=== PATIENT | female | born 1940 | race Caucasian/White ===

== ENCOUNTER 2019-12-17 11:56 | Inpatient (IN) | payer MEDICARE, OTHER ==
[~2019-12-17] VITALS: Ht 165.1 cm; Wt 65.8 kg
[~2019-12-17 11:56] MED LIST: CRESTOR PO; OXYCONTIN PO
--- NOTE | 2019-12-17 12:03 | NUR ---
Patient assessed by . blood sugar of 158. md notified.
--- NOTE | 2019-12-17 12:05 | NUR ---
Patient taken down to CT.
[2019-12-17] MEDS ORDERED: IV NORMAL SALINE 250 ML IV ONE (12:21)
[2019-12-17] MEDS ORDERED: IOHEXOL 350 100 ML INFUS..BTL ONE (12:21)
[2019-12-17] MEDS ORDERED: SWABABLE VALVE TRANSFER SET EA MC ONE (12:21)
--- NOTE | 2019-12-17 12:25 | NUR ---
Iv line started in radiology by Landy Burnette.
--- NOTE | 2019-12-17 12:26 | NUR ---
Radiologist on the phone with Dr. Wilson
[2019-12-17 12:29] LABS: BASOPHILS % (AUTO) 0.3 % (0.0-2.0); EOSINOPHILS # (AUTO) 0.4 K/uL (0.0-0.7); EOSINOPHILS % (AUTO) 3.5 % (0.0-7.0); HEMATOCRIT 25.6 % (31.2-41.9); HEMOGLOBIN 8.7 g/dL (10.9-14.3); LYMPHOCYTES # (AUTO) 1.6 K/uL (20.0-40.0); MEAN CORPUSCULAR HEMOGLOBIN 28.9 uug (24.7-32.8); MEAN CORPUSCULAR HGB CONC 34 g/dL (32.3-35.6); MEAN CORPUSCULAR VOLUME 84.9 fL (75.5-95.3); MONOCYTES # (AUTO) 0.6 K/uL (2.0-10.0); MONOCYTES % (AUTO) 5.5 % (0.0-11.0); NEUTROPHILS # (AUTO) 8.5 K/uL (1.8-8.9); NEUTROPHILS % (AUTO) 76.7 % (38.5-71.5); PLATELET COUNT (AUTO) 259 K/uL (179-408); RED BLOOD CELL COUNT(AUTO) 3.01 MIL/uL (3.63-4.92); WHITE BLOOD COUNT (AUTO) 11.1 K/uL (3.8-11.8)
[2019-12-17] MEDS ORDERED: ASPI-1420 PO (12:36)
[2019-12-17] MEDS ORDERED: ROSU5TAB PO (12:36)
[2019-12-17] MEDS ORDERED: MAGN400C PO (12:36)
[2019-12-17] MEDS ORDERED: OXYC20TA58 PO (12:36)
[2019-12-17] MEDS ORDERED: MIRT15TA7 PO (12:36)
[2019-12-17] MEDS ORDERED: LEVE500T9 PO (12:36)
[2019-12-17] MEDS ORDERED: AMLO5TAB4 PO (12:36)
[2019-12-17] MEDS ORDERED: [UNRECOGNIZED DRUG - OTHER] PO (12:36)
[2019-12-17] MEDS ORDERED: DOCU100C36 PO (12:36)
[2019-12-17] MEDS ORDERED: VITAMIN D3 PO (12:36)
[2019-12-17 12:38] LABS: CARBON DIOXIDE 23 mmol/L (21-32); CHLORIDE 106 mmol/L (98-107); CREATININE 1.7 mg/dL (0.6-1.3); GLUCOSE 134 mg/dL (74-106); UREA NITROGEN, BLOOD 29 mg/dL (7-18)
[2019-12-17] MEDS ORDERED: ALBU0.63 NEB (12:38)
[2019-12-17] MEDS ORDERED: PANT20TA2 PO (12:38)
[2019-12-17] MEDS ORDERED: HYDR-894 PO (12:38)
[2019-12-17] MEDS ORDERED: ONDA4TAB5 PO (12:38)
[2019-12-17 12:44] LABS: ALANINE AMINOTRANSFERASE 17 U/L (14-59); ALKALINE PHOSPHATASE 114 U/L (50-136); ASPARTATE AMINOTRANSFERASE 24 U/L (15-37); BILIRUBIN,DIRECT 0.1 mg/dL (0.0-0.2); BILIRUBIN,TOTAL 0.3 mg/dL (0.2-1.0); CHOLESTEROL 129 mg/dL (<200); HDL CHOLESTEROL 66 mg/dL (40-60); TOTAL PROTEIN, SERUM 7.2 g/dL (6.4-8.2); TRIGLYCERIDES 91 MG/DL (30-150)
--- NOTE | 2019-12-17 12:44 | NUR ---
Patient back from radiology vitals as follow: hr of 76, 1005 on RA. sbp of 147/60 Addendum: 12/17/19 at 1406 by GMATEOS AAOX4. no c/of pain.
--- NOTE | 2019-12-17 12:59 | NUR ---
Telestroke assessment in progress
[2019-12-17 13:00] LABS: MAGNESIUM 3.9 mg/dL (1.8-2.4); PHOSPHOROUS 3.7 mg/dL (2.5-4.9)
--- NOTE | 2019-12-17 13:03 | NUR ---
NEUROLOGIST DR SQUIRES EVALUATED THE PT.
[2019-12-17 13:09] LABS: THYROID STIMULATING HORMONE 2.929 mIU/mL (0.358-3.740)
[2019-12-17] MEDS ORDERED: ASPIRIN 325 MG TABLET PO ONE (13:30)
--- NOTE | 2019-12-17 13:30 | NUR ---
Call for a bed 319 assigned no nurse available, as per legal secretary receptionist, Nursing sewing department supervisor called for receiving nurse.
[2019-12-17 13:39] LABS: *BILIRUBIN,URIN NEGATIVE (NEGATIVE); *BLOOD, URINE 2+ (NEGATIVE); *CLARITY,URINE CLEAR (CLEAR); *COLOR,URINE YELLOW (YELLOW); *KETONES,URINE NEGATIVE (NEGATIVE); *UROBILINOGEN,URINE 0.2 E.U./dl (NORMAL); LEUKOCYTE ESTERASE ,URINE NEGATIVE (NEGATIVE); NITRITE, URINE NEGATIVE (NEGATIVE); UGLUCOSE NEGATIVE (NEGATIVE)
--- NOTE | 2019-12-17 13:40 | NUR ---
Po aspirin not given pt. unable swallow at this time. Md notified.
[2019-12-17] MEDS ORDERED: ASPIRIN 300 MG RECTAL SUPP RC ONE ×2 (13:45→13:58)
[2019-12-17] MEDS ORDERED: ONDANSETRON 4 MG/2 ML VIAL IV PRN (13:45)
--- NOTE | 2019-12-17 13:45 | NUR ---
Epic N.P at bedside assessing patient.
--- NOTE | 2019-12-17 14:25 | NUR ---
Patient will remain in room 1A until rapid covid results released and as informed by med-surge staff if results negative pt. will be benjamin to room 311.
--- NOTE | 2019-12-17 15:45 | NUR ---
Telephone report given to Jim who will continue with care plan. vital of HR 79 sbp of 112/63. no c/of pain belonging taken with pt.
[2019-12-17] MEDS ORDERED: ONDANSETRON HCL 4 MG TABLET PO PRN (16:00)
[2019-12-17] MEDS ORDERED: hydrALAZINE HCL 25 MG TABLET PO PRN (16:00)
[2019-12-17 16:04] LABS: WBC,URINE 0-3 /HPF (0-3)
[2019-12-17 16:05] LABS: BACTERIA,URINE RARE /HPF (NONE SEEN); SQUAMOUS EPITHELIAL CELL,UR FEW /HPF (NONE SEEN)
[2019-12-17 16:13] VITALS: BP 141/41
--- NOTE | 2019-12-17 16:14 | NUR ---
patient taken up via gurney. care relinquish to Rani Carbajal after pt. situated in bed.
[2019-12-17] MEDS ORDERED: BLOOD SUGAR DIAGNOSTIC 1 EACH STRIP VI SCH (16:30)
--- NOTE | 2019-12-17 16:55 | NUR ---
79 year old female received from er via gurney to room 311.pt is axox4. call light with in reach made aware for the admission
[2019-12-17] MEDS: BLOOD SUGAR DIAGNOSTIC 1 EACH STRIP VI SCH (17:29)
--- NOTE | 2019-12-17 19:10 | NUR ---
Received pt in bed, awake. Denies any acute distress or pain at this time. V/S stable on room air. NSR on tele monitor. PIV on RFA 20 is intact. Safety measures in place. Call light within reach. Will continue with the plan of care.
[2019-12-17 20:30] VITALS: BP 120/71
[2019-12-17] MEDS ORDERED: SIMVASTATIN 40 MG TABLET PO SCH (21:00)
[2019-12-17] MEDS: ATORVASTATIN 20 MG TABLET PO SCH (21:01)
[2019-12-17] MEDS: levETIRAcetam 250 MG TABLET PO SCH (21:02)
[2019-12-17] MEDS: MIRTAZAPINE 15 MG TABLET PO SCH (21:02)
[2019-12-17] MEDS: AMLODIPINE 5 MG TABLET PO SCH (21:09)
[2019-12-17] MEDS: ACETAMINOPHEN 325 MG TABLET PO PRN (21:14)
[2019-12-18] MEDS: BLOOD SUGAR DIAGNOSTIC 1 EACH STRIP VI SCH ×5 (00:26→21:00)
[2019-12-18 00:28] VITALS: BP 148/59
[2019-12-18 04:00] VITALS: BP 144/55
[2019-12-18] MEDS: ACETAMINOPHEN 325 MG TABLET PO PRN (05:30)
--- NOTE | 2019-12-18 06:51 | NUR ---
Pt slept through the night. No s/s of acute distress or pain noted. Comfort care and needs attended. Blood sugar closely monitored. Fall, aspiration and seizure precaution maintained. Safety measures in place. Call light within reach. Will endorse to oncoming nurse accordingly.
--- NOTE | 2019-12-18 07:04 | NUR ---
TEXTED DR. VICENTE FOR MRI APPROVAL.
--- NOTE | 2019-12-18 07:06 | NUR ---
0700 Received pt from moisés, pt a/o/x3, forgetful, SB, breathing even/unlabored, room air, no distress at this time. WIll monitor pt clsoely. 12/19/19 0700 Pt was sleeping, SB, room air, breathing even/unlabored, no distress at this time. No acute event during nightshift. Will endorse to moisés.
[2019-12-18 08:00] VITALS: BP 148/54
[2019-12-18] MEDS: OXYCODONE HCL 10 MG TAB.SR.12H PO SCH ×2 (08:35→17:04)
[2019-12-18 08:51] LABS: BASOPHILS # (AUTO) 0.1 K/uL (0.0-8.0); EOSINOPHILS # (AUTO) 0.5 K/uL (0.0-0.7); EOSINOPHILS % (AUTO) 5.4 % (0.0-7.0); HEMATOCRIT 27.5 % (31.2-41.9); HEMOGLOBIN 9.5 g/dL (10.9-14.3); LYMPHOCYTES # (AUTO) 1.9 K/uL (20.0-40.0); LYMPHOCYTES % (AUTO) 21.3 % (20.5-51.5); MEAN CORPUSCULAR HEMOGLOBIN 29.7 uug (24.7-32.8); MEAN CORPUSCULAR HGB CONC 34 g/dL (32.3-35.6); MEAN CORPUSCULAR VOLUME 86.4 fL (75.5-95.3); MONOCYTES # (AUTO) 0.7 K/uL (2.0-10.0); MONOCYTES % (AUTO) 7.8 % (0.0-11.0); NEUTROPHILS # (AUTO) 5.8 K/uL (1.8-8.9); NEUTROPHILS % (AUTO) 64.5 % (38.5-71.5); PLATELET COUNT (AUTO) 238 K/uL (179-408); RED BLOOD CELL COUNT(AUTO) 3.19 MIL/uL (3.63-4.92)
[2019-12-18 08:59] LABS: CARBON DIOXIDE 23 mmol/L (21-32); CHLORIDE 109 mmol/L (98-107); CREATININE 1.7 mg/dL (0.6-1.3); GLUCOSE 95 mg/dL (74-106); POTASSIUM 4.5 mmol/L (3.5-5.1); UREA NITROGEN, BLOOD 26 mg/dL (7-18)
[2019-12-18] MEDS ORDERED: FAMOTIDINE 20 MG TABLET PO SCH (09:00)
[2019-12-18] MEDS ORDERED: Medication Not On Formulary EA (Rosuvastatin Calcium (Crestor) 1 TAB) PO SCH (09:00)
[2019-12-18] MEDS ORDERED: Medication Not On Formulary EA (Pantoprazole Sodium (Protonix) 1 TAB) PO SCH (09:00)
[2019-12-18] MEDS ORDERED: ASPIRIN EC 81 MG TABLET.DR PO SCH (09:00)
[2019-12-18 09:03] LABS: MAGNESIUM 3.9 mg/dL (1.8-2.4); PHOSPHOROUS 3.6 mg/dL (2.5-4.9)
[2019-12-18] MEDS: levETIRAcetam 250 MG TABLET PO SCH ×2 (09:13→21:28)
[2019-12-18] MEDS: DOCUSATE SODIUM 100 MG CAPSULE PO SCH (09:13)
[2019-12-18] MEDS: FUROSEMIDE 40 MG/4 ML VIAL IV SCH (09:13)
[2019-12-18] MEDS: PANTOPRAZOLE SODIUM 40 MG VIAL IV SCH (09:13)
[2019-12-18] MEDS: ASPIRIN EC 325 MG TABLET.DR PO SCH (09:13)
[2019-12-18] MEDS: AMLODIPINE 5 MG TABLET PO SCH ×2 (09:14→21:29)
--- NOTE | 2019-12-18 09:45 | NUR ---
PATIENT SEEN BY THE SLT AND SHE STATED WILL ORDER PUREED DIET WITH THIN LIQUIDS AWAITING FOR ORDERS.
--- NOTE | 2019-12-18 10:29 | NUR ---
PATIENT SEEN AND EXAMINED BY JANE NEPHROLOGY HR ADMINISTRATOR WITH NEW ORDERS AND NOTED
[2019-12-18] MEDS ORDERED: DEXTROSE 50% 50 ML DISP.SYRIN IV PRN (12:15)
[2019-12-18] MEDS ORDERED: INSULIN REGULAR, HUMAN 300 UNIT/3 ML VIAL SQ PRN (12:15)
--- NOTE | 2019-12-18 12:30 | NUR ---
PATIENT ASSISTED ONTO THE COMMODE VOIDED AND BACK TO BED MADE COMFORTABLE REQUIRES MIN ASSIST OF ONE PERSON DENIES DISCOMFORTS.
[2019-12-18 16:00] VITALS: BP 139/55
--- NOTE | 2019-12-18 18:00 | NUR ---
REMAIN ON PAIN MANAGEMENT WITH OXYCONTIN AND STATED ITS HELPING HER THIS IS HER HOME MEDICATIONS NO S/S OF HYPO/HYPERGLYCEMIC REACTIONS AT THIS TIME CALL LIGHTS AND PERSONAL BELONGINGS ARE WITHIN EASY REACH MADE COMFORTABLE WILL CONTINUE TO OBSERVE.
[2019-12-18 21:20] VITALS: BP 140/48
[2019-12-18] MEDS: MIRTAZAPINE 15 MG TABLET PO SCH (21:39)
[2019-12-18] MEDS: ATORVASTATIN 20 MG TABLET PO SCH (21:53)
[2019-12-19 00:19] VITALS: BP 152/56
[2019-12-19 04:00] VITALS: BP 156/53
[2019-12-19 06:46] LABS: BASOPHILS % (AUTO) 0.4 % (0.0-2.0); EOSINOPHILS # (AUTO) 0.6 K/uL (0.0-0.7); EOSINOPHILS % (AUTO) 6.9 % (0.0-7.0); HEMATOCRIT 24.7 % (31.2-41.9); HEMOGLOBIN 8.6 g/dL (10.9-14.3); LYMPHOCYTES # (AUTO) 2.2 K/uL (20.0-40.0); LYMPHOCYTES % (AUTO) 26.4 % (20.5-51.5); MEAN CORPUSCULAR HGB CONC 35 g/dL (32.3-35.6); MEAN CORPUSCULAR VOLUME 89.2 fL (75.5-95.3); MONOCYTES # (AUTO) 0.6 K/uL (2.0-10.0); MONOCYTES % (AUTO) 7.5 % (0.0-11.0); NEUTROPHILS # (AUTO) 4.9 K/uL (1.8-8.9); NEUTROPHILS % (AUTO) 58.8 % (38.5-71.5); PLATELET COUNT (AUTO) 270 K/uL (179-408); RED BLOOD CELL COUNT(AUTO) 2.77 MIL/uL (3.63-4.92); WHITE BLOOD COUNT (AUTO) 8.4 K/uL (3.8-11.8)
[2019-12-19 06:58] LABS: ALANINE AMINOTRANSFERASE 14 U/L (14-59); ALKALINE PHOSPHATASE 101 U/L (50-136); ASPARTATE AMINOTRANSFERASE 22 U/L (15-37); BILIRUBIN,TOTAL 0.2 mg/dL (0.2-1.0); CARBON DIOXIDE 23 mmol/L (21-32); CHLORIDE 109 mmol/L (98-107); GLUCOSE 77 mg/dL (74-106); MAGNESIUM 3.5 mg/dL (1.8-2.4); PHOSPHOROUS 3.5 mg/dL (2.5-4.9); POTASSIUM 4.2 mmol/L (3.5-5.1); TOTAL PROTEIN, SERUM 6.2 g/dL (6.4-8.2); UREA NITROGEN, BLOOD 24 mg/dL (7-18)
--- NOTE | 2019-12-19 07:30 | NUR ---
Received patient resting in bed awake alert and oriented times 4. No sign of distress noted at this time. Patient has a slight droop on the right side of the face and the left arm drifts which she reports is from previous issues with her shoulder and a broken clavicle. Her eyes are a little sluggish and PERRLA was not achieved upon assessment. Safety precautions are in place, with bed in the lowest position, and locked with call light and belongings within reach. Will continue to monitor.
[2019-12-19] MEDS: BLOOD SUGAR DIAGNOSTIC 1 EACH STRIP VI SCH ×3 (08:09→16:52)
--- NOTE | 2019-12-19 08:09 | NUR ---
Patient blood glucose is 67. Patient has a breakfast tray in front of her and is eating at this time. She had some of her orange juice. Patient is also complaining about the pureed food. Will make MD aware that patient is wishing to have a diet with more texture. Will continue to monitor.
[2019-12-19] MEDS: ASPIRIN EC 325 MG TABLET.DR PO SCH (08:53)
[2019-12-19] MEDS: levETIRAcetam 250 MG TABLET PO SCH (08:53)
[2019-12-19] MEDS: OXYCODONE HCL 10 MG TAB.SR.12H PO SCH (08:53)
[2019-12-19 08:54] VITALS: BP 141/71
[2019-12-19] MEDS: FUROSEMIDE 40 MG/4 ML VIAL IV SCH (08:54)
[2019-12-19] MEDS: DOCUSATE SODIUM 100 MG CAPSULE PO SCH (08:54)
[2019-12-19] MEDS: AMLODIPINE 5 MG TABLET PO SCH (08:54)
[2019-12-19] MEDS: PANTOPRAZOLE SODIUM 40 MG VIAL IV SCH (08:54)
[2019-12-19] MEDS ORDERED: CLOPIDOGREL 75 MG TABLET PO SCH (09:00)
--- NOTE | 2019-12-19 12:30 | NUR ---
Made LW MANAGER WORK aware of patient's desire to switch diet. MANAGER WORK said those changes has to be done by speech therapy with a stroke patient. Made patient aware. Will continue to monitor.
[2019-12-19] MEDS ORDERED: CLOP75TA33 PO (13:29)
[2019-12-19] MEDS ORDERED: ROSU20TA2 PO (13:29)
--- NOTE | 2019-12-19 18:11 | NUR ---
Patient discharge is processed. All discharge instructions and paperwork are given. Patient is stable with not sign of distress noted at this time. All medications given as ordered. IV line removed and ID band removed. Patient's belongings list is done and signed and all valuable are with the patient. He son Binh has been call and given the discharge instructions as the patient says he is her caregiver. Patient is awaiting to be picked up by her son Binh. Will continue to monitor.
[2019-12-19] MEDS ORDERED: OXYCODONE HCL 20 MG TAB.SR.12H PO SCH (21:00)
== END 2019-12-19 18:15 | disposition home health service (06) | DRG 64 ==
LOC: ER 11:56 → TELE3 14:08
PROVIDERS: ADMIT Registered Nurse; ATTEND Registered Nurse
DX: I63.9 Cerebral infarction, unspecified (principal); R53.2 Functional quadriplegia; N17.0 Acute kidney failure with tubular necrosis; I13.0 Hypertensive heart and chronic kidney disease with heart failure and stage 1 through stage 4 chronic kidney disease, or unspecified chronic kidney disease; R29.810 Facial weakness; R13.10 Dysphagia, unspecified; E11.40 Type 2 diabetes mellitus with diabetic neuropathy, unspecified; E78.5 Hyperlipidemia, unspecified; E83.41 Hypermagnesemia; G40.909 Epilepsy, unspecified, not intractable, without status epilepticus; E11.22 Type 2 diabetes mellitus with diabetic chronic kidney disease; J45.909 Unspecified asthma, uncomplicated; N18.9 Chronic kidney disease, unspecified; Z86.73 Personal history of transient ischemic attack (TIA), and cerebral infarction without residual deficits; E04.1 Nontoxic single thyroid nodule; Z99.3 Dependence on wheelchair; Z85.038 Personal history of other malignant neoplasm of large intestine; I50.9 Heart failure, unspecified; I25.2 Old myocardial infarction; R40.2362 Coma scale, best motor response, obeys commands, at arrival to emergency department; R40.2142 Coma scale, eyes open, spontaneous, at arrival to emergency department; R40.2252 Coma scale, best verbal response, oriented, at arrival to emergency department; R29.700 NIHSS score 0; G83.21 Monoplegia of upper limb affecting right dominant side; D63.8 Anemia in other chronic diseases classified elsewhere; Z87.01 Personal history of pneumonia (recurrent); Z98.1 Arthrodesis status; Z91.81 History of falling
CPT/HCPCS: 36415; 70030-TC; 70450; 70496; 71045; 80299; 83615; 83735; 84100; 84443; 85025; 85730; 86140; 93005; 93307; 93880; A4663; C1758; C9113; G0378; J1815; J1940; J7030; J7050; Q9967

== ENCOUNTER 2020-12-06 18:58 | Inpatient (IN) | payer MEDICARE, OTHER ==
[~2020-12-06] VITALS: Ht 162.6 cm; Wt 83.2 kg
[~2020-12-06 18:58] MED LIST changes: +ALBU0.63 NEB; +AMLO5TAB4 PO; +ASPI-1420 PO; +CLOP75TA33 PO; -CRESTOR PO; +DOCU100C36 PO; +HYDR-894 PO; +LEVE500T9 PO; +MAGN400C PO; +MIRT-93 PO; +ONDA4TAB5 PO; +OXYC20TA58 PO; -OXYCONTIN PO; +PANT20TA2 PO; +ROSU20TA2 PO; +VITAMIN D3 PO
--- NOTE | 2020-12-06 19:05 | NUR ---
Pt bib RA straight back to room ED5B. VSS, awaiting EDMD eval.
--- NOTE | 2020-12-06 19:30 | NUR ---
In with pt for assessment. Pt AAOx4 with good temp and appearance, slightly pale color. VSS, PE WNL, RRR. She is in no acute distress. Vital signs are normal except for a mild systolic hypertension. Pulse oximetry is normal. Examination of HEENT shows no evidence of craniofacial trauma. There is no cervical spinous process tenderness. There is no jugular venous distention or carotid bruit. Respiratory dynamics are normal. The lungs are clear. There is a pacemaker in the left upper anterior chest. Heart has a regular rate and rhythm without murmurs. The abdomen is soft and nontender. There is a classic cholecystectomy, scar in the right upper quadrant. There is no CVA tenderness. Both knees are swollen musculature in the lower legs is atrophied. There is no peripheral edema. She has multiple intradermal hemorrhages in both hands and forearms. She has no other skin rash. Patient is alert and oriented. Cranial nerves are normal and she moves all 4 extremities normally to command.
[2020-12-06 19:47] LABS: HEMATOCRIT 24.6 % (31.2-41.9); MEAN CORPUSCULAR HEMOGLOBIN 30.2 uug (24.7-32.8); MEAN CORPUSCULAR VOLUME 91.5 fL (75.5-95.3); PLATELET COUNT (AUTO) 293 K/uL (179-408)
[2020-12-06 19:51] LABS: CARBON DIOXIDE 23 mmol/L (21-32); CHLORIDE 110 mmol/L (98-107); CREATININE 4.2 mg/dL (0.6-1.3); GLUCOSE 112 mg/dL (74-106); POTASSIUM 5.9 mmol/L (3.5-5.1); UREA NITROGEN, BLOOD 37 mg/dL (7-18)
--- NOTE | 2020-12-06 20:20 | NUR ---
Pt's son at bedside per pt request.
[2020-12-06] MEDS ORDERED: METO25TA6 PO (20:37)
[2020-12-06] MEDS ORDERED: GABAPENTIN PO (20:37)
--- NOTE | 2020-12-06 20:40 | NUR ---
Pt being admitted for renal failure and hypermagnaesemia.
--- NOTE | 2020-12-06 20:42 | NUR ---
Phone call placed to [facility]. Told that MD will call back regarding pt.
[2020-12-06] MEDS ORDERED: hydrALAZINE HCL 25 MG TABLET PO PRN (21:45)
[2020-12-06] MEDS ORDERED: ACETAMINOPHEN 325 MG TABLET PO PRN (21:45)
[2020-12-06] MEDS ORDERED: ONDANSETRON 4 MG/2 ML VIAL IV PRN (21:45)
[2020-12-06] MEDS ORDERED: ONDANSETRON HCL 4 MG TABLET PO PRN (21:45)
[2020-12-06] MEDS ORDERED: Z GUARD REMEDY PASTE 57 GM TUBE TOP PRN (21:45)
[2020-12-06] MEDS ORDERED: ALBUTEROL SULFATE 2.5 MG/3 ML NEBU NEB PRN (22:00)
[2020-12-06] MEDS ORDERED: SODIUM POLYSTYRENE SULFONATE 15 G/60 ML LIQUID UDC PO STA (22:09)
[2020-12-06] MEDS ORDERED: DEXTROSE 50% 50 ML DISP.SYRIN IV PRN (22:15)
[2020-12-06] MEDS ORDERED: INSULIN REGULAR, HUMAN 300 UNIT/3 ML VIAL SQ PRN (22:15)
[2020-12-06] MEDS ORDERED: CALCIUM GLUCONATE IV 2 GM in IV NORMAL SALINE 100 ML IV ONE (22:15)
[2020-12-06] MEDS ORDERED: CALCIUM GLUCONATE 1 GM/10 ML VIAL IV ONE (22:57)
[2020-12-06] MEDS ORDERED: FUROSEMIDE 40 MG/4 ML VIAL IV ONE (23:00)
--- NOTE | 2020-12-06 23:00 | NUR ---
Room assignment received rm 310 tele. Called report to Nurse Lakesha using [employer] tech. Lakesha gave green light to bring up pt tasia. Pt has good color, temp and appearance, VSS, AAOx4.
--- NOTE | 2020-12-06 23:05 | NUR ---
Admitted a 80 years old female with Dx. of ESRD, Hypermagnesemia and mechanical fall. Patient AAOx4. In no apparent distress. Denies any SOB. Complaint of generalized pain, will provide pain medication per order. IV site on left hand intact and patent. V Pacing on tele with HR of 74/min. Routine admission care done. Plan of care initiated. Safety measure initiated and call hitchcock within reached. Continue to monitor.
--- NOTE | 2020-12-06 23:40 | NUR ---
Pt taken up to room 312 via gurney accompanied by son. Pt transfered to hospital bed from ED gurney and placed in pos of comfort. Nurse call tori given to pt. Pt awaiting telegraph operator.
[2020-12-07] VITALS (11 sets, daily range): BP systolic 135–186; BP diastolic 47–69
[2020-12-07] MEDS ORDERED: OXYCODONE HCL 5 MG TABLET PO PRN
[2020-12-07] MEDS: OXYCODONE HCL 20 MG TAB.SR.12H PO SCH ×3 (00:10→21:07)
--- NOTE | 2020-12-07 05:00 | NUR ---
Bp at 186/69 and HR at 86 this AM. Will give routine Norvasc and Metoprolol AM dose now.
[2020-12-07] MEDS: AMLODIPINE 5 MG TABLET PO SCH (05:02)
--- NOTE | 2020-12-07 05:12 | NUR ---
Patient reported having urge to urinate, has not urinated since admission. Bladder scan done and noted with 886ml of urine in the bladder. Notified Dr Vu and order to do straight catheterization. Will carry out order.
--- NOTE | 2020-12-07 05:30 | NUR ---
Before doing catheterization. patient urinated. Bladder scan done and still has 626ml of urine left in the bladder. Straight catheterization done per order and able to obtain 700ml of yellow urine with few sediments noted. Urine sample also obtained and sent to lab. Patient felt relief after.
--- NOTE | 2020-12-07 06:20 | NUR ---
Patient AAOx4. In no acute distress. Denies any SOB. No complain of pain at this time. Bump on right parietal area still palpable. Ice compress was provided to right parietal area and right knee. IV site on left hand intact and patent. V Pacing on tele with HR of 80/min. Latest BP 166/55. Needs attended to and met. Safety measure maintained and call hitchcock within reached.
[2020-12-07] MEDS: BLOOD SUGAR DIAGNOSTIC 1 EACH STRIP VI SCH ×4 (06:32→21:08)
[2020-12-07 06:36] LABS: HEMATOCRIT 21.7 % (31.2-41.9); MEAN CORPUSCULAR HEMOGLOBIN 30.1 uug (24.7-32.8); MEAN CORPUSCULAR VOLUME 89.4 fL (75.5-95.3); PLATELET COUNT (AUTO) 265 K/uL (179-408)
[2020-12-07 06:46] LABS: *BILIRUBIN,URIN NEGATIVE (NEGATIVE); *BLOOD, URINE 2+ (NEGATIVE); *CLARITY,URINE CLEAR (CLEAR); *KETONES,URINE TRACE (NEGATIVE); *UROBILINOGEN,URINE 0.2 E.U./dl (NORMAL); LEUKOCYTE ESTERASE ,URINE NEGATIVE (NEGATIVE); NITRITE, URINE NEGATIVE (NEGATIVE); PH,URINE 7.5 (5.0-8.0); UGLUCOSE TRACE (NEGATIVE)
[2020-12-07 07:00] LABS: THYROID STIMULATING HORMONE 1.977 mIU/mL (0.358-3.740)
[2020-12-07 07:23] LABS: CARBON DIOXIDE 21 mmol/L (21-32); CHLORIDE 110 mmol/L (98-107); CHOLESTEROL 129 mg/dL (<200); CREATININE 4.1 mg/dL (0.6-1.3); FERRITIN 1288 ng/mL (8-252); GLUCOSE 121 mg/dL (74-106); HDL CHOLESTEROL 62 mg/dL (40-60); PHOSPHOROUS 5.3 mg/dL (2.5-4.9); POTASSIUM 5.2 mmol/L (3.5-5.1); TRIGLYCERIDES 78 MG/DL (30-150); UREA NITROGEN, BLOOD 36 mg/dL (7-18)
--- NOTE | 2020-12-07 07:30 | NUR ---
RECEIVED PT AWAKE , ALERT AND ORIENTEDX4. PT IN NO ACUTE DISTRESS. IV INTACT. SAFETY AND COMFORT PROVIDED. WILL CONTINUE TO MONITOR.
--- NOTE | 2020-12-07 07:35 | NUR ---
NOTIFY LEYDA HERNADEZ FOR CRITICAL LAB OF MG= 4 AND HEMOGLOBIN OF 7.3. NO NEW ORDERS AT THIS TIME. PT STABLE. WILL CONTINUE TO MONITOR.
[2020-12-07 07:44] LABS: *COLOR,URINE LIGHT YELLOW (YELLOW)
[2020-12-07 08:06] LABS: BACTERIA,URINE FEW /HPF (NONE SEEN); WBC,URINE 0-3 /HPF (0-3)
[2020-12-07 08:07] LABS: SQUAMOUS EPITHELIAL CELL,UR FEW /HPF (NONE SEEN)
[2020-12-07 08:26] LABS: IRON, SERUM 30 ug/dL (50-175)
[2020-12-07] MEDS: PANTOPRAZOLE SODIUM 40 MG VIAL IV SCH (08:42)
[2020-12-07] MEDS: DOCUSATE SODIUM 100 MG CAPSULE PO SCH (08:42)
[2020-12-07] MEDS: CHOLECALCIFEROL 1,000 UNIT TABLET PO SCH (08:43)
[2020-12-07] MEDS: FOLIC ACID/VITAMIN B COMP W-C TABLET PO SCH (08:43)
[2020-12-07] MEDS: ASPIRIN EC 81 MG TABLET.DR PO SCH (08:43)
[2020-12-07] MEDS: HEPARIN SODIUM,PORCINE 5,000 UNITS/ML VIAL SQ SCH (08:45)
[2020-12-07] MEDS ORDERED: OXYCODONE HCL 20 MG TAB.SR.12H PO SCH (09:00)
[2020-12-07] MEDS ORDERED: METOPROLOL TARTRATE 25 MG TABLET PO SCH (09:00)
[2020-12-07] MEDS ORDERED: hydrALAZINE HCL 20 MG/1 ML VIAL IV PRN (09:30)
[2020-12-07] MEDS ORDERED: EPOETIN ALFA 10,000 UNITS/ML VIAL SQ ONE (10:00)
--- NOTE | 2020-12-07 10:48 | NUR ---
PT IN NO ACUTE DISTRESS. PRESCRIBED MEDICATION GIVEN AND PT TOLERATED IT WELL. PT STABLE.PT IV INTACT. SAFETY AND COMFORT PROVIDED.BLOOD CONSENT FORM SIGNED. WAITING FOR MIDLINE FOR THE PT. WILL ENDORSE FOR CONTINUITY OF CARE.
--- NOTE | 2020-12-07 11:45 | NUR ---
took over care from am nurse, resting in bed denies of any discomfort, lunch served, placed back to tele, some paced beats with BBB, safety measures maintained, call light within reach, awaiting for midline nurse- to be receiving 2 units of prbc- pt consented
[2020-12-07] MEDS: FUROSEMIDE 20 MG/2 ML VIAL IV SCH (15:27)
--- NOTE | 2020-12-07 16:45 | NUR ---
midline #[id number] placed on left upper arm by midline RN- tolerated well
--- NOTE | 2020-12-07 17:59 | NUR ---
ist unit of packed rbc started, educated on s/s of blood transfusion reaction- verbalized understanding, vs taken, will monitor closely
--- NOTE | 2020-12-07 18:20 | NUR ---
blood infusing without any problem, vs stable, no rashes noted, continue to monitor
--- NOTE | 2020-12-07 19:00 | NUR ---
blood infusing without problem, no s/s of blood reaction noted, appetite poor, no distress noted, safety measures maintained, call light within reach, all needs attended and met
--- NOTE | 2020-12-07 20:00 | NUR ---
per Kalli, blood bank would like to have the patient another H/H in AM before [place] would release another unit.
[2020-12-07] MEDS ORDERED: GABAPENTIN 100 MG CAPSULE PO SCH (21:00)
[2020-12-07] MEDS ORDERED: ATORVASTATIN 40 MG TABLET PO SCH (21:00)
[2020-12-07] MEDS: METOPROLOL TARTRATE 25 MG TABLET PO SCH (21:07)
[2020-12-08 00:31] VITALS: BP 147/56
[2020-12-08 04:00] VITALS: BP 182/64
[2020-12-08 06:47] LABS: HEMATOCRIT 26.5 % (31.2-41.9); MEAN CORPUSCULAR HEMOGLOBIN 29.6 uug (24.7-32.8); MEAN CORPUSCULAR VOLUME 89.1 fL (75.5-95.3); PLATELET COUNT (AUTO) 259 K/uL (179-408)
[2020-12-08] MEDS: BLOOD SUGAR DIAGNOSTIC 1 EACH STRIP VI SCH ×2 (06:54→11:57)
[2020-12-08 07:09] LABS: CARBON DIOXIDE 23 mmol/L (21-32); CHLORIDE 110 mmol/L (98-107); CREATININE 4.2 mg/dL (0.6-1.3); GLUCOSE 84 mg/dL (74-106); MAGNESIUM 3.9 mg/dL (1.8-2.4); PHOSPHOROUS 5.5 mg/dL (2.5-4.9); POTASSIUM 4.4 mmol/L (3.5-5.1); UREA NITROGEN, BLOOD 35 mg/dL (7-18)
[2020-12-08] MEDS: CHOLECALCIFEROL 1,000 UNIT TABLET PO SCH (08:06)
[2020-12-08] MEDS: DOCUSATE SODIUM 100 MG CAPSULE PO SCH (08:06)
[2020-12-08] MEDS: ASPIRIN EC 81 MG TABLET.DR PO SCH (08:06)
[2020-12-08] MEDS: FOLIC ACID/VITAMIN B COMP W-C TABLET PO SCH (08:07)
[2020-12-08] MEDS: PANTOPRAZOLE SODIUM 40 MG VIAL IV SCH (08:07)
[2020-12-08] MEDS: FUROSEMIDE 20 MG/2 ML VIAL IV SCH (08:07)
[2020-12-08] MEDS: OXYCODONE HCL 20 MG TAB.SR.12H PO SCH (08:07)
[2020-12-08] MEDS: HEPARIN SODIUM,PORCINE 5,000 UNITS/ML VIAL SQ SCH (08:08)
[2020-12-08] MEDS: AMLODIPINE 5 MG TABLET PO SCH (08:17)
[2020-12-08] MEDS: METOPROLOL TARTRATE 25 MG TABLET PO SCH (08:17)
[2020-12-08] MEDS ORDERED: FOLI0.8T2 PO (11:03)
[2020-12-08 12:00] VITALS: BP 134/49
--- NOTE | 2020-12-08 15:00 | NUR ---
DC PATIENT HOME BY PER SOHAIL CRABTREE. PATIENT IS ALERT AND ORIENTED X 4, DENIES OF ANY PAIN VS WNL. DISCHARGE INSTRUCTIONS GIVEN, DISCHARGE PRESCRIPTIONS GIVEN, BELONGINGS WERE CHECKED , BODY ASSESSMENT DONE WITH PATIENT'S PERMISSION, IV SITE ON THE LEFT FOREARM REMOVED AND LEFT UPPER ARM MIDLINE WERE REMOVED , NO BLEEDING NOTED, . SON "TRINIDAD" CAME TO PICK HER UP.ASSISTED PATIENT TO THE WHEELCHAIR WHEEL HER TO THE LOBBY AND ASSISTED PATIENT TO HER PRIVATE CARE.
[2020-12-08] MEDS ORDERED: CLOTRIMAZOLE 1% CREAM 30 GM TUBE TOP SCH (17:00)
[2020-12-09] MEDS ORDERED: PANTOPRAZOLE SODIUM 40 MG TABLET.DR PO SCH (07:00)
== END 2020-12-08 14:45 | disposition home or self-care (01) | DRG 291 ==
LOC: ER 19:00 → TELE3 22:50 → MEDSURG3 12-07 08:32 → TELE3 12-07 11:39 → MEDSURG3 12-08 04:45 → TELE3 12-08 05:22 → MEDSURG3 12-08 10:20
PROVIDERS: ADMIT Registered Nurse; ATTEND Registered Nurse
PROC: 30233N1 Transfusion of Nonautologous Red Blood Cells into Peripheral Vein, Percutaneous Approach (ICD-10-PCS; principal; 2020-12-07)
PROC: 05H633Z Insertion of Infusion Device into Left Subclavian Vein, Percutaneous Approach (ICD-10-PCS; 2020-12-07)
PROC: B547ZZA Ultrasonography of Left Subclavian Vein, Guidance (ICD-10-PCS; 2020-12-07)
DX: I13.2 Hypertensive heart and chronic kidney disease with heart failure and with stage 5 chronic kidney disease, or end stage renal disease (principal); R53.2 Functional quadriplegia; I50.33 Acute on chronic diastolic (congestive) heart failure; N18.5 Chronic kidney disease, stage 5; B19.10 Unspecified viral hepatitis B without hepatic coma; E87.5 Hyperkalemia; E11.22 Type 2 diabetes mellitus with diabetic chronic kidney disease; D63.1 Anemia in chronic kidney disease; E78.5 Hyperlipidemia, unspecified; E83.41 Hypermagnesemia; G40.909 Epilepsy, unspecified, not intractable, without status epilepticus; G89.29 Other chronic pain; I25.2 Old myocardial infarction; J45.909 Unspecified asthma, uncomplicated; Z86.73 Personal history of transient ischemic attack (TIA), and cerebral infarction without residual deficits; Z99.3 Dependence on wheelchair; S09.90XA Unspecified injury of head, initial encounter; W19.XXXA Unspecified fall, initial encounter; Y93.9 Activity, unspecified; Y92.009 Unspecified place in unspecified non-institutional (private) residence as the place of occurrence of the external cause; Z91.19 Patient's noncompliance with other medical treatment and regimen; Z95.0 Presence of cardiac pacemaker; Z98.1 Arthrodesis status; Z85.038 Personal history of other malignant neoplasm of large intestine; Z79.82 Long term (current) use of aspirin; Z20.822 Contact with and (suspected) exposure to COVID-19; Z91.81 History of falling
CPT/HCPCS: 36415; 70450; 71045; 73560; 73660; 76770; 82747; 83550; 83735; 83970; 84100; 84132; 84443; 85014; 85025; 86704; 86706; 86803; 86850; 86900; 86901; 86920; 87040; 93005; 93307; A4663; C1758; C9113; G0378; J0360; J0610; J0885; J1644; J1815; J1940; J3490; J7050; P9016